=== PATIENT | female | born 1970 | race Caucasian/White ===

== ENCOUNTER → 2017-06-23 | Outpatient (CLI) | payer MEDICAID ==
[~2017-06-23] MED LIST: AMITRIPTYLINE 225 MG PO; AMLO5TAB PO; CLONAZEPAM0.5 M1 PO; DIFLUCAN 100MG100 MG PO; Estrace 1MG Tabl1 MG PO; GABAPENTIN300 MG PO; HUMULIN 70100 UNITS/ SC; LIPITOR20 MG PO; MAG-OX 400MG T400 MG PO; METFORMIN1000 MG PO; METOPROLOL SUC100 M1 PO; METOPROLOL100 MG PO; NORCO1 TAB PO; OMEPRAZOLE40 MG PO; PERCOCET 325 MG1 TA4 PO; TIZANIDINE4 MG PO
[2017-06-23 13:42] LABS: AMPHETAMINES/METAMPHETAMINES NEGATIVE ng/mL (<1000)
[2017-06-30 16:37] LABS: Codeine Negative (Cutoff=100); Hydrocodone Positive (.); Hydromorphone Negative (Cutoff=100); Morphine Negative (Cutoff=100); Opiates Positive (.)
== END ==
LOC: LAB 11:36
PROVIDERS: Anesthesiology
DX: Z79.899 Other long term (current) drug therapy (principal)